=== PATIENT | male | born 1935 | race Caucasian/White ===

== ENCOUNTER → 2019-09-02 | Outpatient (CLI) | payer MEDICARE, BC ==
[2019-07-28 11:00] VITALS: BP 114/84
[~2019-09-02] MED LIST: BARIUM SULFATE 40% (APPLE) 148 GM PWD. PO ONE; BENZ1LOZ4 PO; CHLO25TA10 PO; CITA10TA8 PO; DOXA4TAB3 PO; INSU100I11 SQ; INSU100V8 SQ; IPRA3AMP29 NEB; LACT1CAP19 PO; LEVO500T59 PO; LEVO75TA5 PO; METF10007 PO; METR500T PO; PANT40TA77 PO; SIMV40TA18 PO; TAMS0.4C97 PO; TRAM50TA PO
--- NOTE | 2019-09-02 17:32 | RAD ---
Examination: VIDEO SWALLOW STUDY History: Difficulty swallowing Comparison/Correlation: None Findings: Video swallow was performed utilizing 3.4 minutes of fluoroscopy. No fluoroscopic images were acquired. Thin liquid, thick liquid, paste, and solid forms of barium were utilized. Oral pharyngeal motility is adequate. There are moderate to large residuals identified within the vallecula on multiple occasions. Piriform sinus residuals are also seen of moderate size. Perform sinus residuals or less with soft solid barium as compared to appear deformed. These clear with dry swallows. There is trace aspiration with thin liquid and nectar thick liquid noted. Epiglottic penetration is noted with the various substances on multiple occasions. Impression: Moderate to large vallecular residuals. Perform sinus residuals also seen. Trace aspiration with thin and nectar thick liquid barium. This is in part related to the moderate to large residual is present. Electronically signed by: Pedro Girard MD (09/02/2019 5:29 PM) [facility]
== END | disposition home or self-care (01) ==
LOC: RAD 12:34
PROVIDERS: ATTEND Internal Medicine
DX: R13.10 Dysphagia, unspecified (principal)
CPT/HCPCS: 74230; 92611

== ENCOUNTER → 2021-08-16 | Outpatient (CLI) | payer MEDICARE, BC ==
[2019-07-28 11:00] VITALS: BP 114/84
--- NOTE | 2021-08-16 16:21 | RAD ---
EXAMINATION: DG VIDEO SWALLOW STUDY 08/16/2021 2:00 PM HISTORY: Dysphagia COMPARISON: Swallow study 09/02/2019 TECHNIQUE: The patient was observed swallowing various consistencies of barium under intermittent flu oroscopy. FINDINGS: There were episodes of deep penetration with thin liquid. No aspiration with any consistencies. Signi ficant residuals on the base of the tongue and in the vallecula with all consistencies. Total fluoroscopic time: 4.2 minutes. Dose:5.1 mGy. IMPRESSION: Penetration with thin liquids. No aspiration. Significant residuals with all consistencie s. Please see the speech pathologist's report for details. Electronically signed by: Gabi Gar MD (08/16/2021 4:19 PM) [id number]
== END ==
LOC: RAD 13:33
PROVIDERS: ATTEND Family Medicine
DX: R13.19 Other dysphagia (principal)
CPT/HCPCS: 74230; 92526-GN; 92611-GN